=== PATIENT | male | born 1995 | race Caucasian/White ===

== ENCOUNTER 2017-02-10 11:47 | Emergency (ER) | payer OTHER ==
[~2017-02-10] VITALS: Ht 167.6 cm; Wt 85.0 kg
[2017-02-10 11:49] VITALS: Ht 167.6 cm; Wt 85.0 kg
[2017-02-10 13:50] VITALS: BP 140/85
== END 2017-02-10 13:50 | disposition home or self-care (01) ==
LOC: ED 11:47 → EDBD 11:47 → ED 13:50
DX: S81.812A Laceration without foreign body, left lower leg, initial encounter (principal); W22.8XXA Striking against or struck by other objects, initial encounter; Y93.89 Activity, other specified; Y92.89 Other specified places as the place of occurrence of the external cause; Y99.8 Other external cause status
CPT/HCPCS: 90715; J2001; Q0092

== ENCOUNTER 2017-02-14 11:20 | Emergency (ER) | payer OTHER ==
[2017-02-14 12:05] VITALS: BP 152/93
== END 2017-02-14 12:05 | disposition home or self-care (01) ==
LOC: ED 11:20
DX: S81.812D Laceration without foreign body, left lower leg, subsequent encounter (principal); X58.XXXD Exposure to other specified factors, subsequent encounter

== ENCOUNTER 2017-02-17 11:23 | Emergency (ER) | payer OTHER ==
[~2017-02-17] VITALS: Ht 167.6 cm; Wt 84.4 kg
[2017-02-17 11:36] VITALS: BP 142/70; Ht 167.6 cm; Wt 84.4 kg
== END 2017-02-17 11:57 | disposition home or self-care (01) ==
LOC: ED 11:23
DX: S81.812D Laceration without foreign body, left lower leg, subsequent encounter (principal); X58.XXXD Exposure to other specified factors, subsequent encounter

== ENCOUNTER 2017-02-18 16:13 | Emergency (ER) | payer OTHER ==
[~2017-02-18] VITALS: Ht 165.1 cm; Wt 86.2 kg
[2017-02-18 16:19] VITALS: BP 141/79; Ht 165.1 cm; Wt 86.2 kg
== END 2017-02-18 17:20 | disposition home or self-care (01) ==
LOC: ED 16:13
DX: S81.802A Unspecified open wound, left lower leg, initial encounter (principal); X58.XXXA Exposure to other specified factors, initial encounter; Y93.89 Activity, other specified; Y92.89 Other specified places as the place of occurrence of the external cause; Y99.8 Other external cause status

== ENCOUNTER 2017-02-19 21:32 | Emergency (ER) | payer OTHER ==
[2017-02-19 23:11] VITALS: BP 146/84
== END 2017-02-19 23:11 | disposition home or self-care (01) ==
LOC: ED 21:32
DX: S81.812D Laceration without foreign body, left lower leg, subsequent encounter (principal); X58.XXXD Exposure to other specified factors, subsequent encounter